=== PATIENT | female | born 1985 | race Caucasian/White ===

== ENCOUNTER → 2021-08-17 09:58 | Outpatient (CLI) | payer OTHER, SELFPAY ==
[2021-08-17 10:23] LABS: Basophils % 0.2 % (0.1-2.0); Eosinophils # 0.1 K/mm3 (0.0-0.4); Eosinophils % 1.2 % (0.1-12.0); Hematocrit 45.4 % (37.0-47.0); Hemoglobin 14.6 g/dL (12.2-16.2); Lymphocytes # 1.3 K/mm3 (0.7-4.5); Lymphocytes % 20.6 % (10-50); Mean Corpuscular HGB Conc 32.2 g/dL (31.8-35.4); Mean Corpuscular Hemoglobin 29.2 pg (27.0-31.2); Mean Corpuscular Volume 90.6 fl (81-99); Mean Platelet Volume 7.2 fl (7.4-10.4); Monocytes # 0.3 K/mm3 (0.1-1.0); Monocytes % 4.2 % (1.7-9.3); Neutrophils # 4.6 K/mm3 (1.8-7.8); Neutrophils % 73.7 % (37.0-80.0); Platelet Count 300 K/mm3 (142-424); Red Blood Count 5.01 M/mm3 (4.20-5.40); Red Cell Distribution Width 12.5 % (11.5-17.5); White Blood Count 6.3 K/mm3 (4.8-10.8)
[2021-08-17 11:31] LABS: Thyroid Stimulating Hormone 0.78 uIU/mL (0.465-4.68)
[2021-08-18 08:25] LABS: Hepatitis B Surface Antigen Negative (Negative); Hepatitis C Antibody <0.1 s/co ratio (0.0-0.9)
[2021-08-18 10:31] LABS: HIV Screen 4th Generation wRfx Non Reactive (Non Reactive); Rubella Antibodies, IgG 1.82 index (Immune >0.99)
[2021-08-18 11:46] LABS: Rapid Plasma Reagin Ab Titer Non Reactive (NonRea<1:1)
== END ==
PROVIDERS: Visit Provider Obstetrics & Gynecology
DX: Z34.90 Encounter for supervision of normal pregnancy, unspecified, unspecified trimester (principal); R09.89 Other specified symptoms and signs involving the circulatory and respiratory systems
CPT/HCPCS: 36415; 84443; 85025; 86592; 86703; 86762; 86850; 87340; 87380; G0432

== ENCOUNTER → 2021-11-17 13:26 | Outpatient (CLI) | payer OTHER, SELFPAY ==
--- NOTE | 2021-11-17 13:26 | US_ITS ---
FINAL REPORT CLINICAL HISTORY: anatomy scan FINDINGS: There is a single live intrauterine gestation. Presentation is breech. The cervix is closed and measures 3.9 cm. Placenta is anterior and grade 1. Fetus is active. Three-vessel cord with satisfactory umbilical cord insertion. Four-chamber heart is noted. brain and ventricles are unremarkable. Chest and diaphragm are unremarkable. ABDOMEN: Both kidneys are unremarkable. Stomach is unremarkable. SPINE: No anomalies identified. Both arms and legs noted. AMNIOTIC FLUID: Appropriate amount. MEASUREMENTS: ULTRASOUND AGE: 23 weeks 3 days. GESTATION AGE: 22 weeks 6 days. ESTIMATED WEIGHT: 593 g GROWTH PERCENTILE: 71% BPD: 5.7 cm consistent with 23 weeks 4 days. OFD: 7.5 cm consistent with 23 weeks 6 days. HC: 21 cm consistent with 23 weeks 1 day. AC: 19.1 cm consistent with 24 weeks 0 days. FL: 4 cm consistent with 23 weeks 0 days. CEREBELLUM: 2.2 cm consistent with 22 weeks 0 days. HUMERUS: 3.8 cm consistent with 23 weeks 3 days. HC/AC: 1.10 CI: 76% FL/BPD: 70% FL/AC: 21% IMPRESSION: Single living IUP with an ultrasound age of 23 weeks 3 days. Growth parameters as detailed above. Reviewed, Interpreted and Dictated by Jeffy Tabares III, MD Transcribed by Raymond Cagle Authenticated by Jeffy Tabares III, MD on 11/17/2021 03:59:28 PM [facility]
== END ==
PROVIDERS: PCP Obstetrics & Gynecology; Visit Provider Obstetrics & Gynecology
DX: Z34.90 Encounter for supervision of normal pregnancy, unspecified, unspecified trimester (principal)
CPT/HCPCS: 76805

== ENCOUNTER → 2021-12-07 08:12 | Outpatient (CLI) | payer OTHER, SELFPAY ==
[2021-12-07 08:43] LABS: Basophils % 0.3 % (0.1-2.0); Eosinophils # 0.2 K/mm3 (0.0-0.4); Eosinophils % 1.6 % (0.1-12.0); Hematocrit 39.7 % (37.0-47.0); Hemoglobin 12.9 g/dL (12.2-16.2); Lymphocytes # 1.6 K/mm3 (0.7-4.5); Lymphocytes % 18.4 % (10-50); Mean Corpuscular HGB Conc 32.5 g/dL (31.8-35.4); Mean Corpuscular Hemoglobin 29.3 pg (27.0-31.2); Mean Corpuscular Volume 90.2 fl (81-99); Mean Platelet Volume 8.2 fl (7.4-10.4); Monocytes # 0.3 K/mm3 (0.1-1.0); Monocytes % 3.8 % (1.7-9.3); Neutrophils # 6.8 K/mm3 (1.8-7.8); Neutrophils % 75.9 % (37.0-80.0); Platelet Count 244 K/mm3 (142-424); Red Cell Distribution Width 13.5 % (11.5-17.5); White Blood Count 8.9 K/mm3 (4.8-10.8)
[2021-12-07 09:35] LABS: Glucose,Fasting 90 mg/dl (74-100)
[2021-12-07 10:12] LABS: Glucose 1 Hour 99 mg/dL (74-100)
== END ==
PROVIDERS: Visit Provider Obstetrics & Gynecology
DX: Z34.90 Encounter for supervision of normal pregnancy, unspecified, unspecified trimester (principal)
CPT/HCPCS: 36415; 82951; 85025

== ENCOUNTER → 2022-01-24 13:38 | Outpatient (CLI) | payer OTHER, SELFPAY | PROVIDERS: Visit Provider Obstetrics & Gynecology | DX: Z34.90 Encounter for supervision of normal pregnancy, unspecified, unspecified trimester (principal); B96.89 Other specified bacterial agents as the cause of diseases classified elsewhere | CPT/HCPCS: 87086; 87088; 87186 ==

== ENCOUNTER 2022-02-01 11:01 | Outpatient (CLI) | payer OTHER, SELFPAY ==
[2022-02-01 11:52] VITALS: BP 104/60; PULSE 89; RESP 16; TEMP 36.6; O2SAT 98
== END 2022-02-01 11:57 | disposition home or self-care (01) ==
LOC: INF 11:02
PROVIDERS: PCP Family Medicine; Visit Provider Obstetrics & Gynecology
DX: N39.0 Urinary tract infection, site not specified (principal)
CPT/HCPCS: 96372; J0696

== ENCOUNTER → 2022-02-07 08:18 | Outpatient (CLI) | payer OTHER, SELFPAY ==
--- NOTE | 2022-02-07 08:39 | US_ITS ---
FINAL REPORT CLINICAL HISTORY: growth and baldev FINDINGS: There is a single live intrauterine gestation. Presentation is cephalic. Placenta is posterior, high, grade 2. movement is seen. Heart rate is 146 beats per minute. AMNIOTIC FLUID: Appropriate amount. BALDEV: 10.6 cm MEASUREMENTS: ULTRASOUND AGE: 35 weeks 0 days. GESTATION AGE: 34 weeks 4 days. ESTIMATED WEIGHT: 2458 g GROWTH PERCENTILE: 45% BPD: 8.8 cm corresponding with 35 weeks 4 days. OFD: 11.1 cm corresponding with 35 weeks 6 days. HC: 31.4 cm corresponding with 35 weeks 2 days. AC: 30.6 cm corresponding with 34 weeks 4 days. FL: 6.6 cm corresponding with 34 weeks 1 days. HC/AC: 1.03 CI: 80% FL/BPD: 75% FL/AC: 22% IMPRESSION: Single living IUP with an ultrasound age of 35 weeks 0 days. BALDEV of 10.6 cm Reviewed, Interpreted and Dictated by Abdelrahman Mike MD Transcribed by Erika Cunningham Authenticated by Abdelrahman Mike MD on 02/07/2022 11:05:25 AM [facility]
== END ==
PROVIDERS: PCP Family Medicine; Visit Provider Obstetrics & Gynecology
DX: Z34.90 Encounter for supervision of normal pregnancy, unspecified, unspecified trimester (principal)
CPT/HCPCS: 76816

== ENCOUNTER → 2022-02-14 19:22 | Outpatient (CLI) | payer OTHER, SELFPAY | PROVIDERS: PCP Family Medicine; Visit Provider Obstetrics & Gynecology | DX: Z34.90 Encounter for supervision of normal pregnancy, unspecified, unspecified trimester (principal) | CPT/HCPCS: 86403; 87086 ==

== ENCOUNTER 2022-02-26 03:07 | Emergency (ER) | payer OTHER, SELFPAY ==
[2022-02-26 03:24] VITALS: BP 108/59; PULSE 98; RESP 18; TEMP 36.9; O2SAT 97; BMI 31.3
--- NOTE | 2022-02-26 03:35 | PC.NURSE ---
Spoke with Laury at night watch who states that milk of magnesium is safe during but avoid magnesium citrate.
--- NOTE | 2022-02-26 03:55 | HMH.EDGENADL ---
ED Disposition Clinical Impression: Constipation during in third trimester Disposition: Home, Self-Care Condition on Discharge: Good Instructions: DI for Constipation Additional Instructions: fluids and call ob for follow up Referrals: Chriss Hua MD [Primary Care Provider] - - Critical Care Critical Care Time: No Attestation: On 02/26/22, the high probability of a clinically significant, sudden or life threatening deterioration of the following system(s) required my full and direct attention, intervention and personal management. The time I documented below is in addition to time spent performing reported procedures but includes the following listed in this critical care notation. Medical Decision Making - Medical Records Medical records reviewed: Yes: I reviewed the patient's medical records. - Ricardo Inquiry Pt receiving controlled substance: No Vital Signs: 02/26/22 03:24 02/26/22 05:12 Temperature 98.5 F 98.2 F Temperature Source Oral Oral Pulse Rate 87 Pulse Rate [Apical] 98 H Respiratory Rate 18 17 Blood Pressure 118/76 Blood Pressure [Right Arm] 108/59 L Blood Pressure Mean [Right Arm] 75 Blood Pressure Source [Right Arm] Automatic Cuff Blood Pressure Position [Right Arm] Sitting 02 Sat by Pulse Oximetry 97 Oxygen Delivery Method Room Air Room Air Orders (Tests/Meds): ED MEDICATIONS Discontinued Medications Generic Name Dose Route Start Last Admin Trade Name Freq PRN Reason Stop Dose Admin Magnesium Hydroxide 30 ml 02/26/22 03:39 02/26/22 03:41 Milk Of Magnesia 30ml Udc PO 02/26/22 03:40 30 ml ONCE ONE Administration Medical Decision Narrative: able to have bm in the ed General Adult HPI - General Chief complaint: PAIN Stated complaint: Constipation 37 weeks Time Seen by Provider: 02/26/22 03:56 Mode of Arrival: Ambulatory Source of Information: Patient, Medical Record Limitations: No Limitations Description of Symptoms (Recalled from ER Triage Doc. by RN): Patient states she is 37 weeks . C/O constipation for prior 4 days. States that tonight the pressure from the constipation was irritating her hemmorhoids so she took a suppository at 0100 this am and some colace yesterday at 1300 and has not yet had any relief so she came to the ER. - History of Present Illness HPI narrative: 37 week preg with 4 days of constipation Onset (ago): day(s) Severity: moderate Associated symptoms: denies other symptoms Treatments prior to arrival: none - Related Data Home Medications Medication Instructions Recorded Confirmed aspirin 81 mg tablet,delayed 81 mg PO DAILY 08/19/21 02/21/22 release cholecalciferol (vitamin D3) 125 125 mcg PO DAILY 08/19/21 02/21/22 mcg (5,000 unit) capsule pediatric multivitamin no.76 1 tab PO BID tab 08/19/21 02/21/22 Allergies Allergy/AdvReac Type Severity Reaction Status Date / Time No Known Allergies Allergy Verified 02/21/22 08:[address] [facility] History - Hepatitis A Screen Attestation statement:: This patient has been screened for Hepatitis A risk factors. I have reviewed the patient's past medical history: Yes Amputation: No Fractures: No - Social History Smoking Status: Never smoker Alcohol Intake: never Substance Use Type: denies use Occupational Status: employed Household Members: spouse Family Hx:: Cancer, Hyperlipidemia, Mental illness ROS Obtained: Yes All systems reviewed & no additional complaints - Constitutional Constitutional: Denies fever(s) - Eyes Eyes: Denies change in vision - ENT Ears, Nose, Mouth, and Throat: Denies sore throat - Cardiovascular Cardiovascular: Denies chest pain - Respiratory Respiratory: Denies shortness of breath - Gastrointestinal Gastrointestingal: Reports: as per HPI, constipation. Denies: abdominal pain - Genitourinary Female Genitourinary: Denies abnormal vaginal bleeding - Musculoskeletal Musculoske
--- NOTE | 2022-02-26 04:54 | PC.NURSE ---
Patient states that she has had a bowel movement that was large enough to make her feel comfortable sitting down.
[2022-02-26 05:12] VITALS: BP 118/76; PULSE 87; RESP 17; TEMP 36.8; O2SAT 98
== END 2022-02-26 05:18 | disposition home or self-care (01) ==
PROVIDERS: Emergency Provider Emergency Medicine; PCP Family Medicine
DX: O99.611 Diseases of the digestive system complicating pregnancy, first trimester (principal); Z79.899 Other long term (current) drug therapy; Z3A.37 37 weeks gestation of pregnancy
CPT/HCPCS: 99282

== ENCOUNTER 2022-03-09 15:48 | Inpatient (IN) | payer OTHER, SELFPAY ==
[2022-03-09 16:03] VITALS: BMI 31.8
[2022-03-09 16:46] LABS: Coronavirus 19, PCR Not Detected (NotDetected); Influenza A, PCR Not Detected (NotDetected); Influenza B, PCR Not Detected (NotDetected)
[2022-03-09 16:48] LABS: Microscopic, Urine URINE MICROSCOPIC (MICROSCOPIC)
[2022-03-09 16:50] LABS: Appearance,Urine CLEAR (Clear); Bilirubin,Urine Negative (Negative); Blood, Urine Negative (Negative); Color,Urine YELLOW (Yellow); Glucose,Urine (UA) Negative (Negative); Ketones,Urine Negative (Negative); Leukocyte Esterase,Urine Negative (Negative); Nitrate,Urine Negative (Negative); PH,Urine 5.5 (5.0-8.5); Protein,Urine Negative (Negative); Specific Gravity, Urine <= 1.005 (1.005-1.030); Urobilinogen,Urine 0.2 EU/dl (0.2)
[2022-03-09 16:54] LABS: Basophils # 0.1 K/mm3 (0-0.2); Basophils % 0.6 % (0.1-2.0); Eosinophils % 0.4 % (0.1-12.0); Hematocrit 30.7 % (37.0-47.0); Hemoglobin 10.4 g/dL (12.2-16.2); Lymphocytes # 1.4 K/mm3 (0.7-4.5); Lymphocytes % 17.6 % (10-50); Mean Corpuscular Hemoglobin 27.4 pg (27.0-31.2); Mean Corpuscular Volume 80.5 fl (81-99); Mean Platelet Volume 9.9 fl (7.4-10.4); Monocytes # 0.4 K/mm3 (0.1-1.0); Monocytes % 4.8 % (1.7-9.3); Neutrophils % 76.5 % (37.0-80.0); Platelet Count 232 K/mm3 (142-424); Red Blood Count 3.81 M/mm3 (4.20-5.40); Red Cell Distribution Width 14.1 % (11.5-17.5); White Blood Count 7.8 K/mm3 (4.8-10.8)
[2022-03-09 17:04] LABS: Amphetamine/Metha Screen,Urine Negative ng/ml (<1000); Barbiturates Screen,Urine Negative ng/ml (<200)
[2022-03-09 17:05] LABS: Benzodiazepines Screen,Urine Negative ng/ml (<200); Cannabinoid Screen,Urine Negative ng/ml (<50)
[2022-03-09 17:06] LABS: Cocaine Screen,Urine Negative ng/ml (<300)
[2022-03-09 17:07] LABS: Methadone Screen,Urine Negative ng/ml (<300); Opiate Screen,Urine Negative ng/ml (<300)
[2022-03-09 17:08] LABS: Phencyclidine Screen,Urine Negative ng/ml (<25)
[2022-03-09 17:13] LABS: WBC,Urine Occasional #/hpf (0-3)
[2022-03-09 17:51] VITALS: BP 131/61; PULSE 94; RESP 18; TEMP 36.8; O2SAT 98; BMI 31.8
[2022-03-09 20:02] VITALS: BP 115/58; PULSE 85; RESP 18; TEMP 36.6; O2SAT 98
[2022-03-10 04:11] VITALS: BP 127/73; PULSE 83; RESP 18; TEMP 36.7; O2SAT 100
[2022-03-10 08:00] VITALS: BP 107/69; PULSE 91; RESP 18; TEMP 36.8; O2SAT 99
--- NOTE | 2022-03-10 08:53 | P.PN_ITS ---
[facility] Anesthesia Checklist - Patient Identification Patient Identification: Arm Band, Verbal (Name & ) - Structural Data Admitted From: Inpatient Planned Operative Procedure/s: LY Consent for Planned Operative Procedure(s) Verified: Yes Verified Documents: Surgical Consent - NPO Status Verified Time NPO: 00:00 - Chart Verification Results Verified: CBC - Airway Assessment C-Spine Mobility Assessed: Yes TMJ Mobility Assessed: Yes Dentition: Good Dentition - Neurological Assessment Level of Consciousness: Awake, Alert, Appropriate - Anesthesia Plan Anesthesia Risk discussed: Yes ASA Class: II Anesthesia Type: Epidural [facility] History I have reviewed the patient's past medical history: Yes *Have you ever received a pneumonia vaccine?: No *Have you received a flu vaccine this season?: No Anesthesia experience/problems:: none Other Surgeries: No: Amputation: No Fractures: No - *Social History Smoking Status: Never smoker Alcohol Intake: never Substance Use Type: denies use *Occupational Status:: employed Household Members: spouse *Travel in the last 8 weeks: None Family Hx:: Cancer, Hyperlipidemia, Mental illness Para: 1
--- NOTE | 2022-03-10 09:34 | HMH.HP ---
*Admission Date: 03/09/22 *Chief complaint: Induction of labor *History of present illness: 36 yo with ELIAZAR 03/17/22 Elective induction of labor at 39 weeks Admitted on the evening of 03/09/22 for cervidil and cervical balloon Balloon removed on the morning of 03/10/22 and cervidil removed Pitocin augmentation begun Cervix /-1 Amniotomy with clear fluid noted status reassuring [facility] History I have reviewed the patient's past medical history: Yes *Have you ever received a pneumonia vaccine?: No *Have you received a flu vaccine this season?: No Anesthesia experience/problems:: none Other Surgeries: No: Amputation: No Fractures: No - *Social History Smoking Status: Never smoker Alcohol Intake: never Substance Use Type: denies use *Occupational Status:: employed Household Members: spouse *Travel in the last 8 weeks: None Family Hx:: Cancer, Hyperlipidemia, Mental illness Para: 1 Review of Systems - Review of Systems Review of systems:: pertinent systems reviewed and negative unless documented below - *Genitourinary Denies abnormal vaginal bleeding Meds Home Medications Medication Instructions Recorded Confirmed Type aspirin 81 mg tablet,delayed 81 mg PO DAILY 08/19/21 03/10/22 History release pediatric multivitamin no.76 1 tab PO BID tab 08/19/21 03/10/22 History docusate sodium 100 mg capsule 100 mg PO DAILY 03/08/22 03/10/22 History Allergies Allergy/AdvReac Type Severity Reaction Status Date / Time No Known Allergies Allergy Verified 03/08/22 09:32 Exam Vital signs and Labs for Last 24 Hours: Temp Pulse Resp BP Pulse Ox 98.2 F 81 18 149/60 H 99 03/10/22 11:31 03/10/22 11:31 03/10/22 11:31 03/10/22 11:31 03/10/22 11:31 Laboratory Results - last 24 hr 03/09/22 16:15: Urine Color Yellow, Urine Appearance Clear, Urine pH 5.5, Ur Specific [place] <= 1.005, Urine Protein Negative, Urine Glucose (UA) Negative, Urine Ketones Negative, Urine Blood Negative, Urine Nitrate Negative, Urine Bilirubin Negative, Urine Urobilinogen 0.2, Ur Leukocyte Esterase Negative, Urine RBC None, Urine WBC Occasional, Ur Squamous Epith Cells None, Urine Bacteria None 03/09/22 16:15: Urine Opiates Screen Negative, Urine Methadone Screen Negative, Ur Barbituates Screen Negative, Ur Phencyclidine Scrn Negative, Ur Amphetamines Screen Negative, U Benzodiazepines Scrn Negative, Urine Cocaine Screen Negative, U Marijuana (THC) Screen Negative 03/09/22 16:33: WBC 7.8, RBC 3.81 L, Hgb 10.4 L, Hct 30.7 L, MCV 80.5 L, MCH 27.4, MCHC 34.0, RDW 14.1, Plt Count 232, MPV 9.9, Neut % (Auto) 76.5, Lymph % (Auto) 17.6, [place] % (Auto) 4.8, Eos % (Auto) 0.4, Baso % (Auto) 0.6, Neut # (Auto) 6.0, Lymph # (Auto) 1.4, [place] # (Auto) 0.4, Eos # (Auto) 0.0, Baso # (Auto) 0.1 03/09/22 16:33: Blood Type A Positive, Antibody Screen Negative 03/09/22 16:37: SARS-CoV-2 (PCR) Not detected, Influenza A Untype (PCR) Not detected, Influenza Type B (PCR) Not detected I & O for Last 24 hours: Intake & Output 03/07/22 03/08/22 03/09/22 03/10/22 11:59 11:59 11:59 11:59 Weight 203 lb - Constitutional no acute distress - *Routine HEENT Exam Head: Present: normocephalic Eye: Absent: conjunctival icterus ENT: Present: mucous membranes moist - *Routine Neck Exam Present: supple. Absent: lymphadenopathy - *Routine Respiratory Exam Present: CTA bilaterally - *Routine Cardiovascular Exam Present: RRR - *Routine Abdominal Exam Present: soft, normoactive bowel sounds. Absent: tenderness - *Routine Rectal Exam Rectal:: deferred - *Routine Genitalia Exam Genitalia:: normal female Comment:: /- - *Routine Extremities Exam Absent: cyanosis, clubbing, edema - *Routine Skin Exam Present: warm. Absent: rash - *Routine Neurological Exam Present: alert, oriented X3 Assessment and Plan (1) 39 weeks gestation of Status: Acute Category: Medical Code(s): Z3A.39 - 39 week
[2022-03-10 11:31] VITALS: BP 149/60; PULSE 81; RESP 18; TEMP 36.8; O2SAT 99
--- NOTE | 2022-03-10 16:57 | HMH.DN ---
- Delivery Note Delivery Date:: 03/10/22 Delivery Time:: 15:17 Anesthesia Type: Epidural Was labor medically induced?: Yes Induction method: per pitocin protocol Gestational age (weeks): 39 delivered prior to 39 weeks?: No Gender: Male at 1 minute: 8 at 5 minutes: 9 Delivery Procedure:: Spontaneous vaginal delivery of vigorous male infant over intact perineum. Delivery uncomplicated No nuchal cord No shoulder dystocia with delivery placed in NAOMI immediately after delivery, with standard nursing assessment performed Apgars: 8 & 9 Placenta spontaneously expressed and examined; noted to be complete/intact. Right vaginal sidewall laceration and 2nd degree perineal laceration repaired in layers with vicryl EBL: 300 cc All sponge/needle/instrument counts correct at conclusion of procedure Laceration:: vaginal Placental Delivery Description: Spontaneous
[2022-03-11 06:13] LABS: Hematocrit 26.8 % (37.0-47.0)
--- NOTE | 2022-03-11 10:17 | HMH.ACPN2 ---
Internal Medicine - PN: Subj *Date: 03/11/22 *Time: 10:17 Interval history: PPD #1 normal vaginal delivery No unusual complaints Tolerating regular diet Ambulating and voiding without difficulty Lochia appropriate Pain control sufficient Exam Vital signs and Labs for Last 24 Hours: Temp Pulse Resp BP Pulse Ox 98.2 F 81 18 149/60 H 99 03/10/22 11:31 03/10/22 11:31 03/10/22 11:31 03/10/22 11:31 03/10/22 11:31 Laboratory Results - last 24 hr 03/11/22 06:03: Hgb 9.0 L, Hct 26.8 L I & O for Last 24 hours: Intake & Output 03/09/22 03/10/22 03/11/22 03/12/22 11:59 11:59 11:59 11:59 Weight 203 lb Narrative: CONSTITUTIONAL: no acute distress HEENT: mucous membranes moist PULMONARY: breathing unlabored without audible wheezes CV: no tachycardia or visible JVD; normal LE peripheral pulses ABD: soft, NT/ND, no guarding : fundus firm below umbilicus SKIN: no visible rash or lesions EXT: 1+ edema LEs NEURO: alert/oriented, no altered mental status PSYCH: appropriate mood and demeanor without anxiety/depression Assessment and Plan (1) 39 weeks gestation of Status: Resolved Category: Medical Code(s): Z3A.39 - 39 weeks gestation of (2) Recurrent loss Status: Acute Category: Medical Code(s): N96 - Recurrent loss (3) Anemia during Status: Resolved Category: Medical Code(s): O99.019 - Anemia complicating , unspecified trimester (4) Vaginal delivery Status: Acute Category: Medical Code(s): O80 - Encounter for full-term uncomplicated delivery - Assessment and plan all Dx Assessment and Plan for all problems:: Routine care Discharge deferred until tomorrow at peds recommendation
[2022-03-11 19:41] VITALS: BP 128/78; PULSE 95; RESP 18; TEMP 36.7; O2SAT 100
--- NOTE | 2022-03-12 09:09 | HMH.ACPN2 ---
Internal Medicine - PN: Subj *Date: 03/12/22 *Time: 09:09 (This is day #2. The patient is afebrile. Vital signs stable. Lochia normal. Uterine fundus involuting well. Breast-feeding well. Hemoglobin 9.0 g, but clinically stable. She will be discharged today.) Exam Vital signs and Labs for Last 24 Hours: Temp Pulse Resp BP Pulse Ox 98.1 F 95 H 18 128/78 100 03/11/22 19:41 03/11/22 19:41 03/11/22 19:41 03/11/22 19:41 03/11/22 19:41 I & O for Last 24 hours: Intake & Output 03/09/22 03/10/22 03/11/22 03/12/22 11:59 11:59 11:59 11:59 Weight 203 lb Assessment and Plan (1) 39 weeks gestation of Status: Resolved Category: Medical Code(s): Z3A.39 - 39 weeks gestation of (2) Recurrent loss Status: Acute Category: Medical Code(s): N96 - Recurrent loss (3) Anemia during Status: Resolved Category: Medical Code(s): O99.019 - Anemia complicating , unspecified trimester (4) Vaginal delivery Status: Acute Category: Medical Code(s): O80 - Encounter for full-term uncomplicated delivery
--- NOTE | 2022-03-12 09:10 | P.DS_ITS ---
General - General Admission date:: 03/09/22 Discharge date: 03/12/22 (This 36-year-old 2, now para 2, AB 0 white female was admitted at 39 weeks after an uneventful . She was induced per protocol, and went steadily to completion. She delivered spontaneously at 1517 on 03/10/2022. The baby was in 8/9, 8 pound 6 ounce, 21 inch male infant, who has been circumcised, is breast-feeding, and has done well. The patient sustained a sulcus tear which was repaired in the usual fashion. Her hemoglobin on admission was 10.4 g; it is 9.0 g, but she is clinically stable. She is discharged home on the second day on iron vitamins, and on Tylenol and Motrin, as needed for pain. She is given appropriate instructions as to diet, exercise, and perineal care, and she is to return to Dr. Rivera's office as scheduled. Blood type is a positive. Her rubel la titer is immune.) HPI HPI: 36 yo with ELIAZAR 03/17/22 Elective induction of labor at 39 weeks Admitted on the evening of 03/09/22 for cervidil and cervical balloon Balloon removed on the morning of 03/10/22 and cervidil removed Pitocin augmentation begun Cervix Amniotomy with clear fluid noted status reassuring Hospital Course Rhogam Administration: Not Indicated Objective Vital signs: Temp Pulse Resp BP Pulse Ox 98.1 F 95 H 18 128/78 100 03/11/22 19:41 03/11/22 19:41 03/11/22 19:41 03/11/22 19:41 03/11/22 19:41 DS: Diagnosis - Discharge Diagnosis (1) 39 weeks gestation of Status: Resolved (2) Recurrent loss Status: Acute (3) Anemia during Status: Resolved (4) Vaginal delivery Status: Acute Discharge Plan - Patient Discharge Instructions Additional Instructions: *NOTHING IN THE VAGINA FOR 6 WEEKS* *NO TUB BATHS FOR 6 WEEKS* *NO HEAVY LIFTING* *NO STRENUOUS ACTIVITY* Patient Instructions: Depression, Hemorrhage, DI for Labor and Delivery, Vaginal , DI for Pre-eclampsia, [facility] Post Discharge Instructions, Preventing the Spread of Coronavirus Discharge Instructions - Follow up Plan Follow up with: Evelyn Rivera MD [Staff Physician] - Condition at discharge:: Stable Home Medications: Home Medications Medication Instructions Recorded Confirmed Type aspirin 81 mg tablet,delayed 81 mg PO DAILY 08/19/21 03/10/22 History release pediatric multivitamin no.76 1 tab PO BID tab 08/19/21 03/10/22 History docusate sodium 100 mg capsule 100 mg PO DAILY 03/08/22 03/10/22 History Prescriptions/Medication Reconciliation: No Action pediatric multivitamin no.76 1 tab PO BID tab docusate sodium 100 mg capsule 100 mg PO DAILY aspirin 81 mg tablet,delayed release 81 mg PO DAILY - Problem Reconciliation Problems Reviewed?: Yes
== END 2022-03-12 11:00 | disposition home or self-care (01) | DRG 807 ==
PROVIDERS: Admitting Provider Obstetrics & Gynecology; PCP Family Medicine; Visit Provider Obstetrics & Gynecology
DX: O99.02 Anemia complicating childbirth (principal); Z37.0 Single live birth; Z3A.39 39 weeks gestation of pregnancy; O70.1 Second degree perineal laceration during delivery
CPT/HCPCS: 59409 ×2; 36415; 59025; 80305; 81001; 85014; 85018; 85025; 86850; 94761; C1758; C9803; G0283; U0003; U0005

== ENCOUNTER → 2022-11-29 16:57 | Outpatient (CLI) | payer OTHER, SELFPAY | PROVIDERS: Visit Provider Obstetrics & Gynecology | DX: L02.91 Cutaneous abscess, unspecified (principal); B95.7 Other staphylococcus as the cause of diseases classified elsewhere | CPT/HCPCS: 87070; 87077; 87186; 87205 ==

== ENCOUNTER 2023-11-16 07:56 | Outpatient (CLI) | payer OTHER, SELFPAY ==
[2023-11-16] VITALS (10 sets, daily range): BP systolic 84–118; BP diastolic 54–76; PULSE 51–76; RESP 18; TEMP 36.9; O2SAT 96–100; BMI 25.8
[2023-11-16] MEDS: IVABRADINE HCL 7.5MG TABLET *IVABRADINE+METOPROLOL REGIMINE 15 MG PO (08:30)
[2023-11-16] MEDS: METOPROLOL TARTRATE 50MG TABLET *IVABRADINE+METOPROLOL REGIMINE 75 MG PO (08:31)
[2023-11-16 08:46] LABS: Anion Gap 13.1 mEq/L (5-15); Blood Urea Nitrogen 10 mg/dl (7-17); Calcium 8.6 mg/dl (8.4-10.2); Carbon Dioxide 25 mmol/L (22.0-30.0); Chloride 103 mmol/L (98-107); Creatinine Clearance Estimated 131 mL/min (50-200); Estimated Glomerular Filt Rate 95 ml/min (>60); GFR (African American) 115 ML/MIN (>60); Glucose 96 mg/dl (74-100); Potassium 4.1 mmoL/L (3.5-5.1); Sodium 137 mmol/L (136-145)
[2023-11-16 09:29] LABS: HCG Qualitative, Serum Negative (Negative)
--- NOTE | 2023-11-16 09:54 | PC.NURSE ---
PT TO POST OP FOR RECOVERY, IN RECLINER WITH GATORADE AND SNACK. 84/54, P 57.
[2023-11-16] MEDS: 0.9 % SODIUM CHLORIDE 50 ML VIAL IV (09:55)
[2023-11-16] MEDS: IOPAMIDOL-370 (76%);100ML BOTTLE 85 ML IV (09:55)
[2023-11-16] MEDS: SODIUM CHLORIDE 0.9% 10ML SYR (RAD ONLY) 10 ML IV (09:55)
--- NOTE | 2023-11-16 10:01 | PC.NURSE ---
[address] ROOM 0941 0.8MG NITRO SL GIVEN FOR BP 112/71 0946 104/63 POST NITRO 0950 CTA COMPLETE, 118/64. C/O LUU, NO DIZZINESS.
[2023-11-16] MEDS: NITROGLYCERIN 0.4MG SL TABLET 0.800000000000000044 MG SL (10:07)
== END 2023-11-16 10:48 | disposition home or self-care (01) ==
PROVIDERS: PCP Family Medicine; Visit Provider Internal Medicine
DX: R06.02 Shortness of breath (principal); R07.89 Other chest pain
CPT/HCPCS: 75571; 75574; 80048; 84703; Q9967

== ENCOUNTER 2023-11-22 11:58 | Day surgery (SDC) | payer OTHER, SELFPAY ==
[2023-11-22] VITALS (7 sets, daily range): BP systolic 98–112; BP diastolic 49–70; PULSE 77–87; RESP 14–19; TEMP 36.6–36.8; O2SAT 98–100; BMI 25.8
[2023-11-22] MEDS: LACTATED RINGERS 1000ML 1,000 ML 100 ML IV (12:11)
[2023-11-22 12:50] LABS: Urine Pregnancy, HCG Qual. Negative (Negative)
--- NOTE | 2023-11-22 13:01 | EXP.ANES.CKL ---
[facility] Disclaimer: The information contained in this section may have been updated after the patient was seen, as this information can be updated by other users. Medical History Abscess of right Bartholin's gland depression Recurrent loss Vasomotor symptoms due to menopause Surgical History Hx of dilation and curettage Hx of foot surgery Family History Other Hyperlipidemia Social History Smoking Status: Never smoker alcohol intake: never substance use type: denies use current occupational status: employed Travel in the last 8 weeks: None household members: spouse caffeine: Yes [facility] [place] Anesthesia Checklist Patient Identification Patient Identification: Arm Band and Verbal (Name & ) Structural Data Admitted From: Home Planned Operative Procedure/s: Colonoscopy Consent for Planned Operative Procedure(s) Verified: Yes NPO Status Verified Time NPO: 00:00 Chart Verification Results Verified: HCG Additional verifications Hx Blood Transfusions: No Airway Assessment Mallampati Score:: Class II C-Spine Mobility Assessed: Yes TMJ Mobility Assessed: Yes Dentition: Good Dentition Neurological Assessment Level of Consciousness: Awake Hx Seizures: No Numbness or tingling in extremities: No Anesthesia Plan Anesthesia Risk discussed: Yes Anesthesia Plan: Verified ASA Class: I Anesthesia Type: MAC
--- NOTE | 2023-11-22 13:39 | HMH.SCOPE ---
Procedure: Date: 11/22/23 Patient Date of :: 1985 Procedure Performed:: Colonoscopy Indications:: History of polyps Performing Provider:: Ed Velasquez MD Referring Provider:: Adolfo Underwood MD Sedation:: See RN Records Procedure:: After placing the patient in the left lateral decubitus position, the colonoscopy was gently inserted into the rectum and under direct visualization advanced to the cecum which was identified by transillumination in the right lower quadrant, identification of the ileocecal valve, appendiceal orifice, and cecal strap. Color, texture, mucosa, and anatomy of the colon were carefully examined with the scope. Findings:: In the distal rectum there was the appearance of mild polypoid appearing mucosa. Biopsies were obtained. The colonoscopy showed tortuosity of the sigmoid colon. The remaining colon appeared normal. On retroflexion view of the rectum small internal hemorrhoids were seen. Recommendations:: Await pathology results Repeat colonoscopy in 5 years, sooner if clinically indicated. Suspect the rectal mucosal abnormality will be hyperplastic changes. Complications:: None Estimated blood obtained (mL): 0 Colonoscopy Component Colonoscopy Component Was a colonoscopy performed during today's procedure?: Yes Recommended follow up colonoscopy of at least 10 years?: Yes
== END 2023-11-22 14:23 | disposition home or self-care (01) ==
PROVIDERS: PCP Family Medicine; Visit Provider Internal Medicine
PROC: (CPT 45378; principal; 2023-11-22 13:00)
DX: Z12.11 Encounter for screening for malignant neoplasm of colon (principal); Z86.010 Personal history of colon polyps; K56.2 Volvulus; K64.8 Other hemorrhoids; K62.1 Rectal polyp
CPT/HCPCS: 45378; 81025; J2704

== ENCOUNTER 2023-11-24 10:50 | Outpatient (CLI) | payer OTHER, SELFPAY ==
--- NOTE | 2023-11-24 | CA_ITS ---
APPROVED REPORT Exam: Exercise Treadmill Technologist: Akila Marks, Ht: 5 ft 7 in Wt: 167 lbs BSA: 1.87 m2 HR: 75 bpm BP: 112/75 mmHg Rhythm: SINUS ARRHYTHMIA, RIGHTWARD AXIS Medical History Medications: ProGESTERONE,,,,, Allergies: No known drug allergies Stress Test Details Test: Faisal HR Resting HR: 84 bpm Max Heart Rate (APMHR): 184 bpm Max HR Achieved: 188 bpm Target HR (85% APMHR): 156 bpm % of APMHR: 102 Recovery HR: 98 bpm HR response to stress: Normal HR response to stress BP Resting BP: 112.0/75.0 mmHg Max BP: 160.0/73.0 mmHg Recovery BP: 132.0/78.0 mmHg BP response to stress: Normal blood pressure response to stress. ECG Resting ECG: Sinus rhythm, right axis deviation Stress EC mm upsloping ST depression Arrhythmia: None Recovery ECG: Return to baseline within 3 minutes of recovery Recovery Arrhythmia: None Clinical Exercise duration: 10:01 min Highest Stage Achieved: Exercise capacity: 12.8 METs Overall Exercise Capacity for Age: Average Stress ECG Conclusion The patient was able to exercise for a total of 10 minutes, 01 seconds. She achieved a total of 12.1 METs. She has average exercise capacity compared to age and sex matched peers. She has normal HR and BP response to exercise. MAX HR: 188 % OF PM: 102% MAX B/P: 160/73 METS: 12.8 Test stopped due: dyspnea. No chest pain ST changes: [address] depression Ectopy: None Conclusion: Average exercise capacity Possible ischemia present on ECG at peak stress Myoview images are reported separately Test Summary REST . . . . . . . Sitting REST 04:34 0.0 0.0 84 . 112/ 75 . . Stage 1 01:00 10.0 1.7 107 . . . . Stage 1 02:00 10.0 1.7 110 . . . . Stage 1 03:00 10.0 1.7 111 . 122/ 65 . . Stage 2 01:00 12.0 2.5 132 . . . . Stage 2 02:00 12.0 2.5 140 . . . . Stage 2 03:00 12.0 2.5 148 . 126/ 64 . . Stage 3 01:00 14.0 3.4 156 . . . . Stage 3 02:00 14.0 3.4 169 . . . . Stage 3 03:00 14.0 3.4 173 . 126/ 64 . . Stage 4 01:00 16.0 4.2 186 . . . . Stage 4 01:01 16.0 4.2 186 . . . Stop exercise at 10:01 RECOVERY 01:00 0.0 0.0 142 . . . . RECOVERY 02:00 0.0 0.0 120 . 160/ 73 . . RECOVERY 03:00 0.0 0.0 97 . 140/ 80 . . RECOVERY 04:00 0.0 0.0 101 . 140/ 80 . . RECOVERY 05:00 0.0 0.0 96 . 132/ 78 . . RECOVERY 05:17 0.0 0.0 100 . 132/ 78 . . Electronically signed by : Sandie Whitfield MD 11/28/2023 16:41:01
--- NOTE | 2023-11-24 10:51 | US_ITS ---
PROCEDURE: US TRANSVAGINAL CLINICAL INDICATION: F/U on Left Ovarian Cyst,Left Sided Pelvic Pain COMPARISON: No exams were available for comparison FINDINGS: Transvaginal sonographic images of the pelvis were obtained. UTERUS: 8.1cm x 4.7 cmx 3.2cm anteverted with a combined endometrial thickness of 3.4mm. There is a 6.2 mm nabothian cyst in the cervix. LEFT OVARY: 3.1cmx1.9 cmx2.0 cm with a volume of 6ml. There are multiple small follicles within the left ovary. RIGHT OVARY: 3.2cmx 2.9 cmx1.9cm with a volume of 9ml. There are several small follicles around the periphery of the right ovary. Inferior to the right ovary there is a cystic structure measuring 3.5 cm x 3.5 cm x 3.0 cm. Both ovaries are seen and appear normal. Doppler flow to both ovaries are seen. There is no fluid in the cul-de-sac. IMPRESSION: 1. Anteverted uterus normal in shape and size. The endometrium is thin 2. Both left and right ovaries are seen and have numerous small follicles. Inferior to the right ovary is a cystic structure measuring 3.5 cm. 3. No fluid in the cul-de-sac. Dictated by: Callum Mon MD 11/25/2023 11:51 Callum Mon MD in [facility] 11/25/2023 11:51
--- NOTE | 2023-11-24 10:51 | NM_ITS ---
APPROVED REPORT Exam: Nuclear Stress Test Indication: chest pain Patient Location: Outpatient Stress Tech: Akila Marks MD Tech:KIM Worthington RT(R)(N) Ht: 5 ft 8 in Wt: 165 lbs Bra Size: 36c HR: 75 bpm BP: 112/75 mmHg BSA: 1.88 m2 Rhythm: NSR TID: 1.13 BMI: 25.0 History: chest pain Procedure: Patient exercised on Faisal protocol 10 minutes and sec, resting heart rate 75 bpm, resting blood pressure 112/75 mmHg, with exercise maximum heart rate achived was 188 bpm which is 102 % of the maximum predicted heart rate and blood pressure was 160/73 mmHg. Test was stopped due to soa. Patient denied any complaint of chest pain. Patient has average exercise capacity, achieved 12.8 METs of workload on treadmill, the blood pressure response to exercise was normal. Cardiac Stress and Resting SPECT Images: Cardiac Stress and Resting SPECT images were obtained using technetium 99m Myoview 32.8 mCi stress and 10.70 mCi at rest. Raw images demonstrate significant soft tissue and diaphragmatic overlap with the cardiac myocardial borders. This may affect the diagnostic interpretation of the study findings. Resting and stress imaging in supine positions demonstrate medium-sized, moderate, fixed perfusion defects in the anterior and inferior LV guerrero. Both defects are no longer visualized with prone stress imaging. Findings are suggestive of soft tissue and diaphragmatic attenuation. Gated imaging demonstrates normal global and regional LV systolic function. LVEF is calculated at 54%. Conclusion: Soft tissue and diaphragmatic attenuation are present. No definite evidence of fixed or reversible perfusion defects. Gated imaging demonstrates normal global and regional LV systolic function. LVEF is calculated at 54%. Electronically signed by : Sandie Whitfield MD 11/28/2023 16:44:47
[2023-11-24] MEDS: SODIUM CHLORIDE 0.9% 10ML SYR (RAD ONLY) 10 ML IV ×2 (13:32)
[2023-11-24] MEDS: ISOTOPE MYOVIEW (PER STUDY) 1 DOSE IV (13:32)
== END 2023-11-24 23:59 ==
LOC: RAD 10:51
PROVIDERS: PCP Family Medicine; Visit Provider Obstetrics & Gynecology
DX: R06.09 Other forms of dyspnea (principal); R10.2 Pelvic and perineal pain; N83.202 Unspecified ovarian cyst, left side; R07.89 Other chest pain
CPT/HCPCS: 76830; 78452; 93017; 93018; A9502

== ENCOUNTER 2023-12-12 16:17 | Outpatient (POV) | payer OTHER, SELFPAY | END 2023-12-12 23:59 | disposition home or self-care (01) | LOC: SC 16:17 | PROVIDERS: PCP Family Medicine; Visit Provider Dermatology | DX: Z00.00 Encounter for general adult medical examination without abnormal findings (principal) ==

== ENCOUNTER 2023-12-15 08:35 | Outpatient (CLI) | payer OTHER, SELFPAY ==
--- NOTE | 2023-12-15 08:41 | CA_ITS ---
APPROVED REPORT EXAM: Comprehensive 2D, Doppler, and color-flow Echocardiogram Restaurant Manager: Argentina Cunningham RT(R) Ht: 5 ft 7 in Wt: 166lbs BSA: 1.87 BP: 104/68 mmHg Indications: CP, SOB. 2D Dimensions LVEF (Montes's) 60.30 % F: 54 - 74 LV Volume 86.90 mL F: 46 - 106 LV Volume Index 46.5 mL/m2 F: 29 - 61 LA Volume 24.00 mL LA Volume Index 12.83 mL/m2 (M/F) 16-34 EF AP4 65.40 % EF AP2 51.2 % EF BP 60.3 % GL Strain -20.9 % M-Mode Dimensions RVDd 2.74 cm (0.9-2.6) LA Diam 2.83 cm (1.9-4.0) LVDd 2.19 cm (3.5-5.7) LVDs 3.22 cm (3.5-5.7) IVSd 0.78 cm (0.6-1.1) PWd 2.68 cm (0.6-1.1) EF (Teich) 160.00% FS 47.00% EDV (Teich) 16.00 mL ESV (Teich) 41.60 mL LV Diastology E Decel Time 193 (160-240 msec) E/A Ratio 1.5 Mitral Valve MV E Max Ovidio. 73.0 (40-130 cm/s) MV A Velocity 50.0 (40-130 cm/s) E/A Ratio 1.45 MV PHT 57.0 ms Tricuspid Valve TR P. Velocity 199.00 cm/s RAP Estimate 10.00 mmHg RVSP 25.80 mmHg Left Ventricle The left ventricle is normal size. The left ventricular systolic function is normal. The left ventricular ejection fraction is within the normal range. There is normal left ventricular wall thickness. There is normal LV segmental wall motion. The left ventricular diastolic function is normal. LVEF is 60%. Right Ventricle The right ventricle is normal size. The right ventricular systolic function is normal. Atria The left atrium size is normal. The right atrium size is normal. There is no Doppler evidence of interatrial shunt. Aortic Valve The aortic valve is normal in structure. There is no aortic valvular stenosis. No aortic regurgitation is present. Mitral Valve The mitral valve is normal in structure. No evidence of mitral valve stenosis. Trace mitral regurgitation. Tricuspid Valve The tricuspid valve leaflets are thin and pliable. Trace tricuspid regurgitation. There is insufficient TR jet to estimate RVSP. Pulmonic Valve The pulmonary valve is normal in structure. Trace pulmonic regurgitation. Great Vessels The aortic root is normal in size. The ascending aorta is normal in size. IVC is normal in size and collapses >50% with inspiration. Pericardium There is no pericardial effusion. Other Information Study Quality: Adequate Conclusion Normal biventricular systolic function. No significant valvular stenosis or regurgitation. Electronically signed by : Sandie Whitfield MD 12/19/2023 10:45:04
== END 2023-12-15 23:59 ==
PROVIDERS: PCP Family Medicine; Visit Provider Internal Medicine
DX: R07.89 Other chest pain (principal)
CPT/HCPCS: 93306

== ENCOUNTER 2025-06-18 08:32 | Outpatient (CLI) | payer BC, SELFPAY ==
--- OUTSIDE RECORDS SUMMARY | 2024-10-31 10:45 | XMS_ITS ---
Author Organization [facility] Address [address] [facility] [address] [place] [id number] Care Team Providers Care Plumber Assistant Name Role Phone Catina Underwood Primary Care Provider Sarai Martinez [phone] Allergies No Known Allergies REASON FOR VISIT possible wart on foot Vital Signs Weight 156.6 lbs 10/31/2024 Blood pressure systolic 100 mm Hg 10/31/19 25 Blood pressure diastolic 60 mm Hg 025 Heart Rate 72 /min 10/31/2024 Encounters Encounter Location Date Provider Diagnosis [facility] [address] [place] [id number] 10/31/2024 Sarai Martinez Skin callus L84 Assessments Encounter Date Diagnosis (ICD Code) Assessment Notes Treatment Notes Treatment Clinical Notes Section Notes 10/31/2024 Skin callus (ICD-10 - L84) Calluses pared down with a number 15 blade. Will get a corn pad with the hole in the middle to off load pressure on these areas. Plan Of Treatment Treatment Notes Assessment Notes Skin callus Calluses pared down with a number 15 blade. Will get a corn pad with the hole in the middle to off load pressure on these areas. Next Appt Details Follow Up: prn, Reason: Progress Notes * VENKAT MCKEONOB:[birth year] (40 yo F)Acc No.[id number]:10/31/2024 Progress Notes Patient: ANASTASIYA FOLEY Provider: CLINT White :1985 A ge:39 Y S ex:Female Date:10/31/2024 Address:[place], [id number] Pcp:Catina Underwood Subjective: * Chief Complaints: * 1 . Possible wart on foot. * HPI: D ermatology: 39 year old female presents with c/o wart P t is here for a possible wart on foot. Pt sts she has a wart on the bottom of both her feet. Pt sts that a few months ago she noticed the spot on one of her feet and thought it was just a dry spot, and sts that within the last week she noticed the one on her other foot, and sts that is definitely not normal and not dry skin. Pt sts they have not gotten any bigger. * ROS: D ERMATOLOGY: no R kate. n o H polina. G ASTROENTEROLOGY: no N ausea. n o V omiting. n o D iarrhea.? U ROLOGY: no B lood in urine. n o F requent urination. ? * Medical History: d epression, started post-. Sertraline helped a lot., FHx colon cancer (Maternal grandmother). * Family History: F ather: unknown, family history unknown . M other: alive. P aternal Grand Father: unknown. P aternal Grand Mother: unknown. M aternal Grand Father: , diagnosed with Heart Disease. M aternal Grand Mother: , diagnosed with Cancer. 4 brother(s) . 1 son(s) , 1 daughter(s) . . MGM - colon cancer. * Social History: C URRENT TOBACCO USE: No . C affeine: yes, frequency: coffee -1-2 cups per day. Marital Status: . Alcohol: yes, occasional mixed drink. Occupation: employed, dental hygentist. Recreational drug use: no. * Medications: N one * Allergies: N .K.D.A. Objective: * Vitals: W t:156.6, Temp:98.1, BP:100/60, HR:72, Nurse:Patricia. * Examination: G eneral Examination: General Appearance: N AD. C hest: n ormal shape and expansion. H eart: R SR. L ungs: c lear to auscultation. S kin: c alluses on the bilateral soles of the feet, all 3 were pared down with a number 15 blade. ? Assessment: * Assessment: 1. S thelma callus - L84 (Primary) Plan: * Treatment: * Follow Up: p rn * Images: Billing Information: * Visit Code: 65984 Office Visit, Est Pt., Level 3. * Procedure Codes: * Electronic signature of CLINT Arzola on 06/18/2025 at 08:41 AM EDT Sign off status: Pending * Provider: CLINT White Date: 0 10/31/2024 Generated for Reggiei kitty/Marissa/eTransmitting on: 0 06/18/2025 08:41 AM EDT History and Physical Notes * HPI (History of Present Illness) Category Sub-Category Detail Notes Category Not es Dermatology wart Pt is here for a possible wart on foot. Pt sts she has a wart on the bottom of both her feet. Pt sts that a few months ago she noticed the spot on one of her feet and thought it was just a dry spot, and sts that within the last week she noticed the one on her other foot, and sts that is definitely not normal and not dry skin. Pt sts they have not gotten any bigger Examination Category Sub-Category Detail Notes Category Not es General Examination Heart: RSR Lungs: clear to auscultatio n General Appearance: NAD Skin: calluses on the bila teral soles of the feet, all 3 were pared down with a number 15 blade Chest: normal shape and exp ansion
--- OUTSIDE RECORDS SUMMARY | 2025-06-18 08:42 | XMS_ITS | Clinical Summary ---
Author Organization [facility] Address [address] [place] [address] Care Team Providers Care Cocktail Waitress Name Role Phone Pcp, No Primary Care Provider Unavailabl e Social History Tobacco Use Types Packs/Day Years Used Date Smoking Tobacco: Never Assessed Comments Unknown Sex and Gender Information Value Date Recorded Sex Assigned at Not on file Legal Sex Female 1:45 PM EDT Gender Identity Not on file Sexual Orientation Not on file Plan of Treatment Health Maintenance Due Date Last Done Comments [facility]-Depression Screening 1985 [facility]-Infant/Child/Adol SDOH Screenings 1985 [facility]-Varicella Vaccines (1 of 2 - 13+ 2-dose series) 2000 [facility]- SDOH Screenings 2005 [facility]-Adult SDOH Screenings 2005 [facility]-Hepatitis B Vaccines (1 of 3 - 19+ 3-dose series) 2006 [facility]-Pap Smear 2008 HPV Vaccines (1 - 3-dose SCD M series) 2014 [facility]-Cervical Cancer Screening 2017 [facility]-HPV/Cotest 2017 [facility]-DTaP,Tdap,and Td Vaccine s (1 - Tdap) 02/15/2022 02/14/2022 [id number] Vaccine (1 - 20 24-25 season) 2024 [facility]-Influenza Vaccine (#1) 2025 [facility]-Zoster Vaccines (1 of 2) 2037 [facility]-HIB Vaccines Aged Out No longer e ligible based on patient's age to complete this topic [facility]-Hepatitis A Vaccines Aged Out No longer eligible based on patient's age to complete this topic [facility]-IPV Vaccines Aged Out No longer e ligible based on patient's age to complete this topic [facility]-Pneumococcal Vaccine: Pediatrics (0 to 5 Years) and At-Risk Patients (6 to 49 Years) Aged Out No long er eligible based on patient's age to complete this topic [facility]-Rotavirus Vaccines Aged Out No lo nger eligible based on patient's age to complete this topic Insurance [employer] Care Teams Cocktail Waitress Relationship Specialty Start Date [place] [address] PCP - General Family Medicine 11/15/23
--- OUTSIDE RECORDS SUMMARY | 2025-06-18 08:42 | XMS_ITS | Patient Health Record ---
Author Organization [facility] Address [address] [facility] [address] [place] [id number] Care Team Providers Care Assistant Womens Volleyball Coach Name Role Phone Catina Underwood Primary Care Provider Sarai Martinez [phone] Allergies No Known Allergies Reason For Referral No Information Problems Problem Type SNOMED Code ICD Code Onset Dates Problem Status W/U Status Risk Notes Problem Left lower quadrant abdominal pain (R10.32) Active confirmed Problem Recurrent depression (430735395) Recurrent depression (F33.9) Active confirmed Vital Signs Heart Rate 72 /min 10/31/2024 Blood pressure diastolic 60 mm Hg 10/31/2024 Blood pressure systolic 100 mm Hg 10/31/2024 Weight 156.6 lbs 10/31/2024 Encounters Encounter Location Date Provider Diagnosis [facility] [address] [facility] [address] [place] [phone] 10/31/2024 Sarai Martinez Skin callus L84 Assessments Encounter Date Diagnosis (ICD Code) Assessment Notes Treatment Notes Treatment Clinical Notes Section Notes 10/31/2024 Skin callus (ICD-10 - L84) Calluses pared down with a number 15 blade. Will get a corn pad with the hole in the middle to off load pressure on these areas. Plan Of Treatment Pending Test Test Name Order Date P-Vitamin B12 08/31/2023 P-Comprehensive Metabolic Panel (CMP) Insurance Providers Payer Name Payer Address Payer Phone Subscriber Number Group Number Insured Name Patient Relationship to Insured Coverage Start Date Coverage End Date AECINDY HORN [id number] MARCIN [employer]ANES [id number] LINDAANASTASIYA Self - patient is the insured Medical (General) History Medical History History ICD Code depression, started post-. Sertral ine helped a lot. FHx colon cancer (Maternal grandmother) Surgical History Surgery Date(Month/Year)
[2025-06-18 09:50] LABS: Hemoglobin A1C 5.0 % (4.0-6.0)
[2025-06-18 10:21] LABS: Thyroid Stimulating Hormone 1.26 uIU/mL (0.465-4.68)
[2025-06-19 06:13] LABS: Insulin Level Total 3.8 uIU/mL (2.6-24.9)
[2025-06-19 08:13] LABS: FSH 6.3 mIU/mL (.); Testosterone,Total 14 ng/dL (8-60)
== END 2025-06-18 23:59 | disposition home or self-care (01) ==
LOC: LAB 08:33
PROVIDERS: PCP Family Medicine; Visit Provider Obstetrics & Gynecology
DX: N95.1 Menopausal and female climacteric states (principal)
CPT/HCPCS: 36415; 82670; 83001; 83036; 83525; 84144; 84403; 84443